=== PATIENT | female | born 1990 | race American Indian/Alaskan Native ===

== ENCOUNTER 2016-09-10 21:16 | Emergency (ER) | payer SELFPAY ==
[2016-09-10] MEDS ORDERED: MOTRIN PO ONE (23:41)
[2016-09-10] MEDS ORDERED: DUONEB 0.5 MG-3 MG/3 ML SOLN IH ONE (23:41)
[2016-09-10] MEDS ORDERED: ZITHROMAX PO ONE (23:42)
[2016-09-10] MEDS ORDERED: ROBITUSSIN DM PO ONE (23:42)
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
[2016-09-11] MEDS ORDERED: DUONEB 0.5 MG-3 MG/3 ML SOLN IH ONE (00:26)
[2016-09-11 02:04] VITALS: BP 115/76
--- NOTE | 2016-09-11 07:11 | XRay Report ---
Chest 2 views: History: Cough worsening. Findings: Normal cardiomediastinal silhouette. Trachea is midline. No consolidation, pneumothorax or pleural effusion. Impression: No acute cardiopulmonary findings. The
== END 2016-09-11 02:00 | disposition home or self-care (01) ==
LOC: ED 21:16
DX: J20.9 Acute bronchitis, unspecified (principal); D64.9 Anemia, unspecified; Z87.891 Personal history of nicotine dependence
CPT/HCPCS: 71020; 81025; 93005; 93010; 94640

== ENCOUNTER 2016-11-14 04:46 | Emergency (ER) | payer SELFPAY ==
[2016-11-14 04:58] VITALS: BP 114/73
[2016-11-14 05:34] LABS: Basophils % (Auto) 0.6 % (0.0-1.8); Eosinophils % (Auto) 1.9 % (0.0-4.3); Hemoglobin 12.9 gm/dl (10.1-14.3); Mean Corpuscular HGB Conc 32 % (30-34); Mean Corpuscular Hemoglobin 30 pg (28-32); Mean Corpuscular Volume 91 fl (79-97); Platelet Count 206 K/mm3 (140-440); Red Blood Count 4.38 M/mm3 (3.65-5.03); Red Cell Distribution Width 15.8 % (13.2-15.2)
[2016-11-14 05:52] LABS: Bilirubin,Urine NEG (Negative); Blood,Urine NEG (Negative); Ketones,Urine NEG (Negative); Leukocyte Esterase,Urine TR (Negative); Nitrite,Urine NEG (Negative); Protein,Urine <15 mg/dL mg/dL (Negative); Urobilinogen,Urine < 2.0 mg/dL (<2.0)
[2016-11-14 05:53] LABS: Alanine Aminotransferase 9 units/L (7-56); Albumin 4.2 g/dL (3.9-5); Albumin/Globulin Ratio 1.2 %; Alkaline Phosphatase 66 units/L (35-129); Anion Gap 14 mmol/L; BUN/Creatinine Ratio 13.33; Blood Urea Nitrogen 8 mg/dL (7-17); Calcium 9.5 mg/dL (8.4-10.2); Carbon Dioxide 25 mmol/L (22-30); Chloride 99.3 mmol/L (98-107); Glucose 84 mg/dL (65-100); Potassium 3.7 mmol/L (3.6-5.0); Sodium 135 mmol/L (137-145); Total Protein 7.6 g/dL (6.3-8.2)
--- NOTE | 2016-11-15 16:20 | ED Elopement Review ---
ED Pt Elopement review - Results review Lab results: Laboratory Tests 11/14/16 11/14/16 11/14/16 05:04 05:04 05:04 WBC 7.0 RBC 4.38 Hgb 12.9 Hct 40.0 MCV 91 MCH 30 MCHC 32 RDW 15.8 H Plt Count 206 Lymph % (Auto) 34.8 [place] % (Auto) 8.8 H Eos % (Auto) 1.9 Baso % (Auto) 0.6 Lymph # 2.4 [place] # 0.6 Eos # 0.1 Baso # 0.0 Seg Neutrophils % 53.9 Seg Neutrophils # 3.8 Sodium 135 L Potassium 3.7 Chloride 99.3 Carbon Dioxide 25 Anion Gap 14 BUN 8 Creatinine 0.6 L Estimated GFR > 60 BUN/Creatinine Ratio 13.33 Glucose 84 Calcium 9.5 Total Bilirubin 0.20 AST 16 ALT 9 Alkaline Phosphatase 66 Total Protein 7.6 Albumin 4.2 Albumin/Globulin Ratio 1.2 HCG, Qual Negative Urine Color Urine Turbidity Urine pH Ur Specific [place] Urine Protein Urine Glucose (UA) Urine Ketones Urine Blood Urine Nitrite Urine Bilirubin Urine Urobilinogen Ur Leukocyte Esterase Urine WBC (Auto) Urine RBC (Auto) U Epithel Cells (Auto) 11/14/16 05:28 WBC RBC Hgb Hct MCV MCH MCHC RDW Plt Count Lymph % (Auto) [place] % (Auto) Eos % (Auto) Baso % (Auto) Lymph # [place] # Eos # Baso # Seg Neutrophils % Seg Neutrophils # Sodium Potassium Chloride Carbon Dioxide Anion Gap BUN Creatinine Estimated GFR BUN/Creatinine Ratio Glucose Calcium Total Bilirubin AST ALT Alkaline Phosphatase Total Protein Albumin Albumin/Globulin Ratio HCG, Qual Urine Color Straw Urine Turbidity Clear Urine pH 8.0 H Ur Specific [place] 1.004 Urine Protein <15 mg/dl Urine Glucose (UA) Neg Urine Ketones Neg Urine Blood Neg Urine Nitrite Neg Urine Bilirubin Neg Urine Urobilinogen < 2.0 Ur Leukocyte Esterase Tr Urine WBC (Auto) 1.0 Urine RBC (Auto) 1.0 U Epithel Cells (Auto) 4.0 - Call Back decision Pt Call Back Decision: Pt to F/U with PMD
== END 2016-11-14 11:40 | disposition left against medical advice (07) ==
LOC: ED 04:46
DX: R10.9 Unspecified abdominal pain (principal); Z53.21 Procedure and treatment not carried out due to patient leaving prior to being seen by health care provider
CPT/HCPCS: 36415; 80053; 81001; 84703; 85025

== ENCOUNTER 2016-12-30 14:03 | Emergency (ER) | payer SELFPAY ==
[2016-12-30 14:59] LABS: Basophils % (Auto) 0.6 % (0.0-1.8); Hematocrit 40.7 % (30.3-42.9); Hemoglobin 13.3 gm/dl (10.1-14.3); Mean Corpuscular HGB Conc 33 % (30-34); Mean Corpuscular Hemoglobin 30 pg (28-32); Mean Corpuscular Volume 92 fl (79-97); Platelet Count 286 K/mm3 (140-440); Red Blood Count 4.43 M/mm3 (3.65-5.03); White Blood Count 5.1 K/mm3 (4.5-11.0)
[2016-12-30 16:18] LABS: Bilirubin,Urine NEG (Negative); Blood,Urine MOD (Negative); Ketones,Urine NEG (Negative); Leukocyte Esterase,Urine NEG (Negative); Nitrite,Urine NEG (Negative); Protein,Urine <15 mg/dL mg/dL (Negative); RBC,Urine < 1.0 /HPF (0.0-6.0); Urobilinogen,Urine < 2.0 mg/dL (<2.0)
[2016-12-30 16:19] LABS: WBC,Urine < 1.0 /HPF (0.0-6.0)
--- NOTE | 2016-12-30 20:43 | Ultrasound Report ---
FINAL REPORT PROCEDURE: Transvaginal pelvic ultrasound. TECHNIQUE: Real-time transvaginal sonography in multiple planes of the pelvis was performed with image documentation. This examination was performed without Doppler. Vascular abnormalities, including ovarian torsion, will not be detectable without Doppler evaluation. CPT 99030 HISTORY: Pelvic pain, vaginal bleeding. COMPARISON: No prior studies are available for comparison. FINDINGS: The uterus measures 8.6 centimeters x 3.4 centimeters x 5.2 centimeters. The myometrium appears uniform. There are no uterine masses. The endometrial echo complex is thin and measures 1.3 millimeters. There is a simple cyst in the right ovary measuring 2.3 centimeters in maximum dimension. There is a larger simple cyst in the left ovary measuring 4.5 centimeters in maximum dimension. There is no free fluid in the cul-de-sac. IMPRESSION: Bilateral ovarian cysts.
--- NOTE | 2016-12-30 20:46 | Ultrasound Report ---
FINAL REPORT PROCEDURE: Transabdominal pelvic ultrasound. TECHNIQUE: Real-time transabdominal sonography in multiple planes of pelvis was performed with image documentation. This examination was performed without Doppler. Vascular abnormalities, including ovarian torsion, will not be detectable without Doppler evaluation. CPT 31306 HISTORY: Left-sided pelvic pain, vaginal bleeding. COMPARISON: No prior studies are available for comparison. FINDINGS: The uterus measures 8.6 centimeters x 3.4 centimeters x 5.2 centimeters. The myometrium appears homogeneous. The endometrial echo complex appears normal. Both ovaries are visualized. There is a cyst in the right ovary with a maximum diameter of 2.0 centimeters. There is a larger cyst in the left ovary with a maximum diameter of 4.8 centimeters. There is no fluid in the cul-de-sac. IMPRESSION: Bilateral ovarian cysts.
[2016-12-30 21:08] VITALS: BP 110/83
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
== END 2016-12-30 21:37 | disposition home or self-care (01) ==
LOC: ED 14:03
DX: K02.9 Dental caries, unspecified (principal); K05.10 Chronic gingivitis, plaque induced; N83.201 Unspecified ovarian cyst, right side; N83.202 Unspecified ovarian cyst, left side
CPT/HCPCS: 36415; 76830; 76856; 81001; 84702; 85025; 86850; 86900; 86901

== ENCOUNTER 2017-01-15 09:24 | Emergency (ER) | payer SELFPAY ==
[2017-01-15 10:00] LABS: Basophils % (Auto) 0.3 % (0.0-1.8); Eosinophils % (Auto) 2.2 % (0.0-4.3); Hemoglobin 13.3 gm/dl (10.1-14.3); Mean Corpuscular HGB Conc 33 % (30-34); Mean Corpuscular Hemoglobin 31 pg (28-32); Mean Corpuscular Volume 92 fl (79-97); Platelet Count 219 K/mm3 (140-440); Red Blood Count 4.36 M/mm3 (3.65-5.03); Red Cell Distribution Width 14.8 % (13.2-15.2); White Blood Count 8.8 K/mm3 (4.5-11.0)
[2017-01-15 10:16] LABS: Anion Gap 17 mmol/L; Blood Urea Nitrogen 6 mg/dL (7-17); Calcium 9.2 mg/dL (8.4-10.2); Carbon Dioxide 25 mmol/L (22-30); Chloride 101.1 mmol/L (98-107); Glucose 111 mg/dL (65-100); Sodium 139 mmol/L (137-145)
--- NOTE | 2017-01-15 10:44 | XRay Report ---
CHEST 2 VIEWS INDICATION: Cough, congestion. COMPARISON: 09/11/2016. FINDINGS: PA and lateral chest radiographs demonstrate normal cardiomediastinal silhouette. Clear lungs. Slight thoracic dextrocurvature. CONCLUSION: No acute disease in the chest. Thank you for the opportunity to participate in this patient's care.
[2017-01-15] MEDS ORDERED: DUONEB *Not for PRN Use IH ONE (10:51)
[2017-01-15] MEDS ORDERED: ROBITUSSIN AC PO ONE (10:51)
[2017-01-15] MEDS ORDERED: DECADRON PO ONE (10:51)
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
[2017-01-15 13:00] VITALS: BP 126/74
== END 2017-01-15 12:59 | disposition home or self-care (01) ==
LOC: ED 09:24
DX: J06.9 Acute upper respiratory infection, unspecified (principal); R09.82 Postnasal drip; F17.200 Nicotine dependence, unspecified, uncomplicated
CPT/HCPCS: 36415; 71020; 80048; 84703; 85025; 87116; 87430; 99284; J8540

== ENCOUNTER 2017-01-22 06:32 | Emergency (ER) | payer SELFPAY ==
[2017-01-22 07:59] VITALS: BP 122/88
[2017-01-22 08:25] LABS: Bilirubin,Urine NEG (Negative); Blood,Urine NEG (Negative); Ketones,Urine NEG (Negative); Leukocyte Esterase,Urine MOD (Negative); Mucus,Urine FEW /HPF; Nitrite,Urine NEG (Negative); Protein,Urine <15 mg/dL mg/dL (Negative); Urobilinogen,Urine < 2.0 mg/dL (<2.0)
[2017-01-22] MEDS ORDERED: DUONEB *Not for PRN Use IH ONE (08:31)
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
--- NOTE | 2017-01-22 10:19 | XRay Report ---
PA and lateral chest: Chest wall pain. There is a mild dextroscoliosis of the spine. The bony structures are was unremarkable. The mediastinal, jr, and pulmonary findings are not remarkable. No interval change compared to 01/15/17. Impression: No acute findings.
== END 2017-01-22 12:00 | disposition home or self-care (01) ==
LOC: ED 06:32
DX: A59.9 Trichomoniasis, unspecified (principal); R07.9 Chest pain, unspecified; Y08.89XA Assault by other specified means, initial encounter; Y93.9 Activity, unspecified; Y92.9 Unspecified place or not applicable; Y99.9 Unspecified external cause status; F17.200 Nicotine dependence, unspecified, uncomplicated
CPT/HCPCS: 71020; 81001; 81025; 87210; 87591; 93005; 93010; 94640

== ENCOUNTER 2017-02-06 15:06 | Emergency (ER) | payer MEDICAID, OTHER ==
[2017-02-06 15:20] VITALS: BP 110/67
[2017-02-06 15:43] LABS: Bilirubin,Urine NEG (Negative); Blood,Urine NEG (Negative); Ketones,Urine NEG (Negative); Leukocyte Esterase,Urine NEG (Negative); Nitrite,Urine NEG (Negative); Protein,Urine <15 mg/dL mg/dL (Negative); Urobilinogen,Urine < 2.0 mg/dL (<2.0); WBC,Urine < 1.0 /HPF (0.0-6.0)
[2017-02-06 15:59] LABS: Alanine Aminotransferase 12 units/L (7-56); Albumin 4.1 g/dL (3.9-5); Albumin/Globulin Ratio 1.5 %; Alkaline Phosphatase 49 units/L (35-129); Anion Gap 15 mmol/L; Blood Urea Nitrogen 7 mg/dL (7-17); Calcium 9.1 mg/dL (8.4-10.2); Carbon Dioxide 25 mmol/L (22-30); Chloride 100.2 mmol/L (98-107); Glucose 87 mg/dL (65-100); Lipase 45 units/L (13-60); Potassium 4.2 mmol/L (3.6-5.0); Sodium 136 mmol/L (137-145); Total Protein 6.8 g/dL (6.3-8.2)
[2017-02-06 16:02] LABS: Basophils % (Auto) 0.4 % (0.0-1.8); Eosinophils % (Auto) 4.4 % (0.0-4.3); Hematocrit 37.7 % (30.3-42.9); Hemoglobin 12.5 gm/dl (10.1-14.3); Mean Corpuscular HGB Conc 33 % (30-34); Mean Corpuscular Hemoglobin 30 pg (28-32); Mean Corpuscular Volume 92 fl (79-97); Platelet Count 244 K/mm3 (140-440); Red Blood Count 4.12 M/mm3 (3.65-5.03); Red Cell Distribution Width 14.4 % (13.2-15.2); White Blood Count 5.4 K/mm3 (4.5-11.0)
== END 2017-02-07 10:03 | disposition left against medical advice (07) ==
LOC: ED 15:06
DX: K08.89 Other specified disorders of teeth and supporting structures (principal); Z53.21 Procedure and treatment not carried out due to patient leaving prior to being seen by health care provider
CPT/HCPCS: 36415; 80053; 81001; 81025; 83690; 85025

== ENCOUNTER 2017-02-18 19:59 | Emergency (ER) | payer MEDICAID ==
[2017-02-18 20:31] VITALS: BP 124/80
[2017-02-18 21:08] LABS: Basophils % (Auto) 0.8 % (0.0-1.8); Eosinophils % (Auto) 7.2 % (0.0-4.3); Hematocrit 35.4 % (30.3-42.9); Hemoglobin 12.1 gm/dl (10.1-14.3); Mean Corpuscular HGB Conc 34 % (30-34); Mean Corpuscular Hemoglobin 31 pg (28-32); Mean Corpuscular Volume 91 fl (79-97); Platelet Count 202 K/mm3 (140-440); Red Blood Count 3.88 M/mm3 (3.65-5.03); Red Cell Distribution Width 13.9 % (13.2-15.2); White Blood Count 6.1 K/mm3 (4.5-11.0)
[2017-02-18 21:19] LABS: Alanine Aminotransferase 10 units/L (7-56); Albumin 4.2 g/dL (3.9-5); Albumin/Globulin Ratio 1.4 %; Alkaline Phosphatase 51 units/L (35-129); Anion Gap 15 mmol/L; BUN/Creatinine Ratio 10; Bilirubin,Total < 0.20 mg/dL (0.1-1.2); Blood Urea Nitrogen 6 mg/dL (7-17); Calcium 8.8 mg/dL (8.4-10.2); Carbon Dioxide 26 mmol/L (22-30); Glucose 72 mg/dL (65-100); Lipase 35 units/L (13-60); Potassium 3.3 mmol/L (3.6-5.0); Sodium 140 mmol/L (137-145); Total Protein 7.3 g/dL (6.3-8.2)
[2017-02-18 21:42] LABS: Bilirubin,Urine NEG (Negative); Blood,Urine LG (Negative); Ketones,Urine NEG (Negative); Leukocyte Esterase,Urine NEG (Negative); Mucus,Urine 2+ /HPF; Nitrite,Urine NEG (Negative); Protein,Urine <15 mg/dL mg/dL (Negative); Urobilinogen,Urine < 2.0 mg/dL (<2.0)
== END 2017-02-18 23:34 | disposition left against medical advice (07) ==
LOC: ED 19:59
DX: R10.9 Unspecified abdominal pain (principal); Z53.21 Procedure and treatment not carried out due to patient leaving prior to being seen by health care provider
CPT/HCPCS: 36415; 80053; 81001; 81025; 83690; 85025

== ENCOUNTER 2017-02-19 12:58 | Emergency (ER) | payer MEDICAID ==
[2017-02-19 14:54] LABS: Basophils % (Auto) 0.9 % (0.0-1.8); Eosinophils % (Auto) 8.1 % (0.0-4.3); Hematocrit 37.7 % (30.3-42.9); Hemoglobin 12.4 gm/dl (10.1-14.3); Mean Corpuscular HGB Conc 33 % (30-34); Mean Corpuscular Hemoglobin 31 pg (28-32); Mean Corpuscular Volume 93 fl (79-97); Platelet Count 212 K/mm3 (140-440); Red Blood Count 4.07 M/mm3 (3.65-5.03); Red Cell Distribution Width 13.5 % (13.2-15.2); White Blood Count 5.4 K/mm3 (4.5-11.0)
[2017-02-19 16:18] LABS: Bilirubin,Urine NEG (Negative); Blood,Urine LG (Negative); Ketones,Urine NEG (Negative); Leukocyte Esterase,Urine NEG (Negative); Mucus,Urine 2+ /HPF; Nitrite,Urine NEG (Negative); Protein,Urine <15 mg/dL mg/dL (Negative); Urobilinogen,Urine < 2.0 mg/dL (<2.0)
[2017-02-19] MEDS ORDERED: TYLENOL ONE (16:30)
[2017-02-19 17:03] LABS: Alanine Aminotransferase 10 units/L (7-56); Albumin 4.5 g/dL (3.9-5); Albumin/Globulin Ratio 1.6 %; Alkaline Phosphatase 48 units/L (35-129); Anion Gap 18 mmol/L; BUN/Creatinine Ratio 12; Blood Urea Nitrogen 6 mg/dL (7-17); Calcium 9.1 mg/dL (8.4-10.2); Carbon Dioxide 25 mmol/L (22-30); Glucose 95 mg/dL (65-100); Potassium 3.7 mmol/L (3.6-5.0); Sodium 141 mmol/L (137-145); Total Protein 7.4 g/dL (6.3-8.2)
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
[2017-02-20] MEDS ORDERED: ULTRAM PO ONE (06:55)
[2017-02-20 07:58] VITALS: BP 129/90
== END 2017-02-20 08:00 | disposition home or self-care (01) ==
LOC: ED 12:58
DX: N94.6 Dysmenorrhea, unspecified (principal); F17.210 Nicotine dependence, cigarettes, uncomplicated
CPT/HCPCS: 36415; 80053; 81001; 84702; 85025; 86850; 86900; 86901; 99283

== ENCOUNTER 2017-07-20 21:26 | Emergency (ER) | payer MEDICAID ==
[2017-07-20 21:31] VITALS: BP 126/93
[2017-07-20 22:19] LABS: Basophils # (Auto) 0.1 K/mm3 (0.0-0.1); Basophils % (Auto) 0.9 % (0.0-1.8); Eosinophils # (Auto) 0.2 K/mm3 (0.0-0.4); Eosinophils % (Auto) 2.3 % (0.0-4.3); Hematocrit 36.6 % (30.3-42.9); Hemoglobin 11.9 gm/dl (10.1-14.3); Lymphocytes # (Auto) 2.5 K/mm3 (1.2-5.4); Lymphocytes % (Auto) 31.9 % (13.4-35.0); Mean Corpuscular HGB Conc 33 % (30-34); Mean Corpuscular Hemoglobin 30 pg (28-32); Mean Corpuscular Volume 91 fl (79-97); Monocytes # (Auto) 0.7 K/mm3 (0.0-0.8); Monocytes % (Auto) 8.7 % (0.0-7.3); Platelet Count 329 K/mm3 (140-440); Red Blood Count 4.02 M/mm3 (3.65-5.03)
[2017-07-20 22:37] LABS: BUN/Creatinine Ratio 18; Blood Urea Nitrogen 9 mg/dL (7-17); Hemolysis Index 6
[2017-07-20] MEDS ORDERED: DUONEB *Not for PRN Use IH ONE (23:20)
--- NOTE | 2017-07-20 23:21 | XRay Report ---
FINAL REPORT PROCEDURE: XR CHEST ROUTINE 2V TECHNIQUE: PA and lateral chest radiographs were obtained. CPT 29058 HISTORY: Shortness of breath COMPARISON: No prior studies are available for comparison. FINDINGS: Heart: Normal. Mediastinum/Vessels: Normal. Lungs/Pleural space: Normal. Bony thorax: No acute osseous abnormality. Other: IMPRESSION: Normal examination.
== END 2017-07-21 00:48 ==
LOC: ED 21:26
DX: R07.89 Other chest pain (principal); R06.02 Shortness of breath; R05 Cough
CPT/HCPCS: 36415; 71046; 80048; 84703; 85025; 93005; 93010; 94640